=== PATIENT | male | born 1960 | race Caucasian/White ===

== ENCOUNTER → 2016-11-24 | Day surgery (SDC) | payer OTHER ==
[~2016-11-24] VITALS: Ht 170.2 cm; Wt 89.4 kg
[~2016-11-24] MED LIST: ACET500C49 PO; AMLO10TA3 PO; BENZ100C8 PO; CETI-343 PO; CITA20TA11 PO; DIPH25CA6 PO; Dexamethasone 4 mg/mL Inj ONE; FLUT15.88 IH; HYDR1LIQ4 PO; LOSA50TA37 PO; Lactated Ringer's 1,000 ML IV ONE; METH750T3 PO; Ondansetron 2 mg/mL 2 mL Inj ONE; Propofol 10 mg/mL 20 mL Inj ONE; VORI200T9 PO
--- NOTE | 2016-11-24 07:40 | PCM.HPANE ---
Patient Data Surgeon Admitting Provider: Attending Provider:Kirsten Freedman MD Primary Care Physician:Baldo Other Provider:Luis Keyes Anesthesia Reason for Visit History Of Adenomatous Polyp Of Colon Ht/WT & BMI Body Mass Index Allergies Coded Allergies: codeine (Verified Allergy, Unknown, 11/22/16) hydrocodone (Verified Allergy, Unknown, 11/22/16) Past Anesthesia History Anesthesia History: Denies:: Abnormal Airway Medications Reported Medications Voriconazole 200 Mg [id number] Mg PO BID 11/22/16 Methocarbamol 750 Mg Tablet0.5 Tab PO HS Ref 0 11/22/16 Losartan Potassium 50 Mg Qwhxjj78 Mg PO DAILY 11/22/16 Hydromorphone 1 Mg/1 Ml Liquid1 Mg PO QID PRN For Pain 11/22/16 Fluticasone Propionate 50 Mcg/Actuation Bluejacket.susp1 Puff IH DAILY 11/22/16 diphenhydrAMINE HCl (Benadryl)25 Mg Gyqrthj66 Mg PO TID PRN Ref 0 11/22/16 Citalopram 20 Mg Wraaay87 Mg PO DAILY Ref 0 11/22/16 Cetirizine HCl (24Hour Allergy)10 Mg Mbfytj69 Mg PO DAILY 11/22/16 Benzonatate 100 Mg [id number] Mg PO DAILY 11/22/16 Amlodipine 10 Mg Izlklj36 Mg PO DAILY Ref 0 11/22/16 Acetaminophen 500 Mg Aiuarjc455 Mg PO TID PRN For Pain 11/22/16 History History of ENT Problems?: Yes HEENT History: Positive for:: TMJ Denies:: Abnormal Airway Denture Type: None Teeth Condition: Broken Teeth Tooth Decay Hx of Heart Problems?: No Cardiovascular History: Denies:: Chest Pain Hx of Respiratory Problem?: Yes Respiratory History: Denies:: Asthma Other Resp Pertinent History: Pulmonary fungal infection and sarcoid Hx Neurologic Problems?: No Hx of GI Problems?: No Hx of Problems?: Yes Other Pertinent History: CKD, urinary retention Hx Musculoskeletal Problems?: No Psycho Social History: Positive for:: Anxiety Hx Surgeries?: Yes Hx Any Other Health Problems?: No Stop/Bang Risk Assessment Category Category 1A: Patient has history of documented sleep apnea, and HAS NOT received any narcotic, sedative or anesthesia administration during this stay. Category 1B: Patient has history of documented sleep apnea, and HAS received any narcotic , sedative or anesthesia administration during this stay Category 2: Patient has SUSPECTED Obstructive Sleep Apnea, and HAS received any narcotic , sedative or anesthesia administration during this stay. Category 3: Patient has SUSPECTED Obstructive Sleep Apnea and HAS NOT received narcotic, sedative or anesthesia administration during this stay. Category 4: Outpatient in Procedural Areas with known sleep apnea or who screen positive for High Risk via the STOP/BANG questionnaire. Exam Exam General Appearance: Alert, Oriented X3, Cooperative, No Acute Distress HEENT/AIRWAY: MP 1 Lungs: Normal Air Movement Heart: Regular Rate/Rhythm Plan Impression Patient chart reviewed, patient interviewed and anesthestic plan with risks, benefits, and alternatives discussed, and informed consent obtained. NPO per Anesth. Guidelines: Yes ASA Physical Status: ASA3 Severe Disease Anesthetic Plan: MAC Bene/Risks/Altern/Consents: Yes HP Complete Prior to Induction: Yes Kee Rucker MD Nov 24, 2016 07:40
[2016-11-24 13:47] VITALS: BP 103/70; PULSE 45; RESP 15; O2SAT 98
[2016-11-24 14:00] VITALS: BP 108/69; PULSE 46; RESP 15; O2SAT 95
--- NOTE | 2016-11-24 14:07 | ENDO ---
[address] [address] ENDOSCOPY PROCEDURE PATIENT: JEANNE MCKEON : 1960 MR#: [id number] ADMIT: 11/24/2016 JOB ID: [id number] DATE OF SERVICE: 11/24/2016 PROCEDURE: Colonoscopy. INDICATION: Patient with history of adenomatous colon polyps. The patient's ASA classification and Mallampati score as per anesthesia note. INSTRUMENT USED: PCFH-190L PREPARATION QUALITY: Fair. PROCEDURE DETAILS: After informed consent was obtained, the patient was brought to the GI suite, where she was placed on oxygen via nasal cannula and monitored with continuous pulse oximeter, telemetry, and blood pressure monitoring. A time-out was performed. Then, she was placed in a left lateral decubitus position and medications were administered for sedation. A digital rectal exam was performed and was unremarkable. The colonoscope was then inserted into the rectum and advanced under direct visualization to the cecum, which was identified by the presence of the ileocecal valve and appendiceal orifice. Once the cecum was reached, the colonoscope was withdrawn back into the rectum as the mucosa and lumen were examined. In the rectum, retroflexion was performed. Following retroflexion, remaining air in the rectum was suctioned, and procedure was completed. FINDINGS: 1. In the proximal ascending colon, there was an approximately 6 mm sessile polyp which was removed with a hot snare. 2. Distal to this also in the ascending colon was approximately 3-4 mm flat polyp which was removed with cold biopsy forceps. The remainder of the colon exam was otherwise unremarkable. IMPRESSION: Two ascending colon polyps. RECOMMENDATIONS: 1. Avoid NSAIDs and anticoagulants for 72 hours. 2. Repeat colonoscopy pending polyp pathology results. COMPLICATIONS: None. ESTIMATED BLOOD LOSS: Less than 5 mL cc: Primary care provider (unknown)
--- NOTE | 2016-11-24 18:18 | PCM.ANEP1 ---
Post Anesthesia PACU Phase 1 Assessment Vital Signs Vital Signs Date Time Temp Pulse Resp B/P Pulse Ox O2 Delivery O2 Flow Rate FiO2 11/24/16 14:00 46 15 108/69 95 Room Air 11/24/16 13:47 36.3 45 15 103/70 98 Nasal Cannula Anesthetic Administered: MAC Level of Alertness: Awake, talking Pain: No Nausea or Vomiting: No CV Function & Hydration Stable: Yes Airway Device: None Lungs: Normal Air Movement PACU Phase 2 Assessment Complications: No Follow up Care: N/A Patient Instructions Provided: N/A Kee Rucker MD Nov 24, 2016 18:18
--- NOTE | 2016-11-30 14:51 | PATH ---
SURGICAL PATHOLOGY Attending Physician:Socrates White CASE STATUS: Signed Out PATIENT NAME: JEANNE MCKEON PID: [id number] : 1960 DATE COLLECTED:11/24/2016 00:00 SPECIMEN: 1: Colon, Polyp 2: Colon, Polyp CLINICAL HISTORY: 1). ASCENDING COLON POLYP #1 2). ASCENDING COLON POLYP #2 FINAL DIAGNOSIS: 1. Ascending Colon, Polyp #1, Biopsy: Tubular adenoma. 2. Ascending Colon, Polyp #2, Biopsy: Sessile serrated adenoma. ICD10: D12.2 GROSS DESCRIPTION: The specimen is received in two formalin filled containers labeled with the patient's name. 1). The specimen is labeled "ascending colon polyp #1" and consists of 4 portions of tissue which aggregate to 0.2 x 0.2 x 0.1 CM. All fragments are totally submitted in cassette 1A. 2). The specimen is labeled "ascending colon polyp #2" are 3 fragments of beard, soft tissue which range in size from 0.3 x 0.3 x 0.2 CM. The specimen is entirely submitted in cassette 2A. 11/25/2016DC ICD-9 CODES: CPT CODES: 1: 40417 2: 97077 Electronically Signed Out Jyotnsa Colmenares MD [facility] [address], [place] [address] Technical component performed at [facility], [facility] [address], [place], [address]
== END | disposition home or self-care (01) ==
LOC: END 08:21
PROVIDERS: ATTEND Internal Medicine Gastroenterology
DX: Z12.11 Encounter for screening for malignant neoplasm of colon (principal); D12.2 Benign neoplasm of ascending colon; Z86.010 Personal history of colon polyps; G47.33 Obstructive sleep apnea (adult) (pediatric); D86.0 Sarcoidosis of lung
CPT/HCPCS: 45385; J1100; J2405; J2704; J7120